=== PATIENT | female | born 1980 | race African-American/Black ===

== ENCOUNTER 2019-12-22 19:40 | Emergency (ER) | payer MEDICAID ==
[~2019-12-22] VITALS: Ht 172.7 cm; Wt 105.0 kg
[2019-12-22] MEDS ORDERED: SODIUM CHLORIDE 0.9% 1,000 ML IV ONE (21:08)
[2019-12-22] MEDS ORDERED: ONDANSETRON HCL 4MG/2ML INJ IV STA (21:08)
[2019-12-22] MEDS ORDERED: MORPHINE SULFATE 4 MG/ML CPJ (NOT FOR IM USE) IV STA (21:08)
[2019-12-22 21:38] LABS: CHLORIDE 103 mEq/L (98-107)
[2019-12-22 21:41] LABS: INR 1.1; PROTHROMBIN TIME 11.3 sec (9.6-11.0)
[2019-12-22 21:50] LABS: HCG SCREEN NEGATIVE
[2019-12-22 22:02] LABS: CLARITY URINE CLEAR (CLEAR); COLOR URINE YELLOW (YELLOW); KETONES URINE NEGATIVE (NEGATIVE); LEUKOCYTE ESTERASE URINE NEGATIVE (NEGATIVE); NITRITE URINE NEGATIVE (NEGATIVE); OCCULT BLOOD URINE NEGATIVE (NEGATIVE); PROTEIN URINE NEGATIVE (NEGATIVE); UROBILINOGEN URINE 0.2 E.U./dL (0.2-1.0)
[2019-12-22 22:56] LABS: BASOPHILS % 0.7 % (0.0-2.0); EOSINOPHILS % 0.4 % (0.0-5.0); HEMATOCRIT. 33.2 % (36.0-48.0); HEMOGLOBIN. 10.2 g/dL (12.0-16.0); MEAN CORPUSCULAR HEMOGLOBIN 21.9 pg (28.0-32.0); MEAN PLATELET VOLUME 8.4 fl (7.4-10.4); MONOCYTES % 7.2 % (2.0-8.0); NEUTROPHILS % 71.7 % (40.0-76.0); PLATELET 224 x1000/uL (130-400); RED BLOOD CELL COUNT 4.67 mill/uL (4.2-5.4); RED CELL DISTRIBUTION WIDTH 17.1 % (11.6-14.6)
[2019-12-23 00:26] VITALS: BP 120/82
== END 2019-12-23 00:27 | disposition home or self-care (01) ==
LOC: ER 19:40
DX: K52.9 Noninfective gastroenteritis and colitis, unspecified (principal); J45.909 Unspecified asthma, uncomplicated
CPT/HCPCS: 36415; 74176; 80053; 81003; 83690; 84703; 85025; 85610; 93005; 96361; 96374; 96375; 99285; J2270; J2405; J7030

== ENCOUNTER 2020-05-26 22:34 | Inpatient (IN) | payer MEDICAID ==
[~2020-05-26] VITALS: Ht 172.7 cm; Wt 104.8 kg
[2020-05-27] MEDS ORDERED: ONDANSETRON HCL 4MG/2ML INJ IV STA (00:02)
[2020-05-27] MEDS ORDERED: MORPHINE SULFATE 4 MG/ML CPJ (NOT FOR IM USE) IV STA (00:02)
[2020-05-27] MEDS ORDERED: SODIUM CHLORIDE 0.9% 1,000 ML IV ONE (00:15)
[2020-05-27] MEDS ORDERED: IOHEXOL-300 100 ML BOTTLE ONE (00:19)
[2020-05-27] MEDS ORDERED: DIATR MEGLU/DIATRIZOATE SOLN 30ML ONE (00:20)
[2020-05-27 00:24] LABS: BASOPHILS % 0.5 % (0.0-2.0); EOSINOPHILS % 0.4 % (0.0-5.0); HEMATOCRIT. 34.4 % (36.0-48.0); HEMOGLOBIN. 10.4 g/dL (12.0-16.0); LYMPHOCYTES % 19.9 % (20.0-50.0); MEAN CORPUSCULAR HEMOGLOBIN 21.1 pg (28.0-32.0); MEAN CORPUSCULAR VOLUME 69.9 fL (81.0-99.0); MEAN PLATELET VOLUME 8.6 fl (7.4-10.4); NEUTROPHILS % 72.2 % (40.0-76.0); PLATELET 310 x1000/uL (130-400); RED BLOOD CELL COUNT 4.92 mill/uL (4.2-5.4); RED CELL DISTRIBUTION WIDTH 17.8 % (11.6-14.6)
[2020-05-27 00:39] LABS: CHLORIDE 106 mEq/L (98-107)
[2020-05-27 00:47] LABS: HCG SCREEN NEGATIVE
[2020-05-27 01:24] LABS: PLATELET ESTIMATE NORMAL
[2020-05-27 04:09] LABS: CLARITY URINE CLEAR (CLEAR); COLOR URINE YELLOW (YELLOW); KETONES URINE NEGATIVE (NEGATIVE); LEUKOCYTE ESTERASE URINE NEGATIVE (NEGATIVE); NITRITE URINE NEGATIVE (NEGATIVE); OCCULT BLOOD URINE NEGATIVE (NEGATIVE); PROTEIN URINE NEGATIVE (NEGATIVE); UROBILINOGEN URINE 0.2 E.U./dL (0.2-1.0)
[2020-05-27 11:00] VITALS: BP 128/70
[2020-05-27 12:00] VITALS: BP 120/70
[2020-05-27] MEDS: DEXT 5%/0.45% NACL 1000ML 1,000 ML IV SCH (12:01)
[2020-05-27] MEDS: MORPHINE SULFATE 2 MG/ML CPJ (NOT FOR IM USE) IV PRN ×3 (12:02→20:25)
[2020-05-27 16:32] VITALS: BP 120/79
[2020-05-27 20:00] VITALS: BP 111/75
[2020-05-27] MEDS: ONDANSETRON HCL 4MG/2ML INJ IV PRN (20:31)
[2020-05-28] VITALS: BP 104/75
[2020-05-28] MEDS: DEXT 5%/0.45% NACL 1000ML 1,000 ML IV SCH (00:26)
[2020-05-28] MEDS: ONDANSETRON HCL 4MG/2ML INJ IV PRN (01:17)
[2020-05-28] MEDS: MORPHINE SULFATE 2 MG/ML CPJ (NOT FOR IM USE) IV PRN (01:17)
[2020-05-28 04:00] VITALS: BP 117/62
[2020-05-28 08:00] VITALS: BP 108/53
[2020-05-28 08:14] LABS: BASOPHILS % 0.6 % (0.0-2.0); EOSINOPHILS % 0.6 % (0.0-5.0); HEMOGLOBIN. 9.6 g/dL (12.0-16.0); LYMPHOCYTES % 24.2 % (20.0-50.0); MEAN CORPUSCULAR HEMOGLOBIN 21.1 pg (28.0-32.0); MEAN CORPUSCULAR VOLUME 70.3 fL (81.0-99.0); MEAN PLATELET VOLUME 8.6 fl (7.4-10.4); MONOCYTES % 7.8 % (2.0-8.0); NEUTROPHILS % 66.8 % (40.0-76.0); PLATELET 281 x1000/uL (130-400); RED BLOOD CELL COUNT 4.55 mill/uL (4.2-5.4); RED CELL DISTRIBUTION WIDTH 17.7 % (11.6-14.6)
[2020-05-28 08:15] LABS: CHLORIDE 106 mEq/L (98-107)
== END 2020-05-28 14:07 | disposition left against medical advice (07) | DRG 254 ==
LOC: ER 22:34 → 4WST 05-27 05:02 → ENRESERV 05-27 07:55
PROVIDERS: ADMIT Internal Medicine; ATTEND Internal Medicine
DX: K43.3 Parastomal hernia with obstruction, without gangrene (principal); J45.909 Unspecified asthma, uncomplicated; E44.1 Mild protein-calorie malnutrition; D64.9 Anemia, unspecified; E66.01 Morbid (severe) obesity due to excess calories; Z53.29 Procedure and treatment not carried out because of patient's decision for other reasons; D72.829 Elevated white blood cell count, unspecified; Z90.49 Acquired absence of other specified parts of digestive tract; Z93.3 Colostomy status; Z68.35 Body mass index [BMI] 35.0-35.9, adult
CPT/HCPCS: 36415; 71045; 74177; 80048; 80053; 81003; 83605; 84703; 85025; 93005; 96374; 99285; J2270; J2405; J7030; Q9963; Q9967